=== PATIENT | female | born 1945 | race Caucasian/White ===

== ENCOUNTER 2021-12-08 17:37 | Inpatient (IN) | payer MEDICARE, OTHER ==
[~2021-12-08] VITALS: Ht 175.3 cm; Wt 86.4 kg
--- NOTE | ~2021-12-08 | OR ---
[facility] [address], [place] [address] Draft DATE OF OPERATION: 01/06/2022 SURGEON: Sanjay Fan MD TRANSISTOR TESTER: Dr. Cervantes. PREOPERATIVE DIAGNOSIS: Uterovaginal prolapse. POSTOPERATIVE DIAGNOSIS: Uterovaginal prolapse. PROCEDURE: Total vaginal hysterectomy, rectocele repair. ANESTHESIA: Spinal with IV sedation. ESTIMATED BLOOD LOSS: 50 mL. DRAINS: Ball catheter. PACKS: Vaginal. INDICATIONS AND FINDINGS: The patient is a 76-year-old female, who has had known uterovaginal prolapse for several years. She had been doing well with pessary, but has begun having urinary retention with the pessary. Unfortunately, she also had urinary retention without the pessary. She is now undergoing surgery to correct her prolapse. She has had cardiac clearance. At the time of surgery, the cervix presented at the introitus. The uterus was in normal size. No adnexal masses are noted. She had a grade 3 cystocele and a grade 2 rectocele. DESCRIPTION OF PROCEDURE: The patient was prepped and draped in the dorsal lithotomy position. A weighted speculum was placed and the cervix was visualized and grasped on the anterior and PATIENT NAME: HILL GONSALEZ OPERATIVE REPORT DATE OF : 45 REPORT #: [id number] PHYSICIAN: SANJAY FAN MD PCP: FAISAL KATHLEEN DR REPORT IS CONFIDENTIAL AND NOT TO BE RELEASED WITHOUT AUTHORIZATION [facility] [address] [place], [place] [address] Draft posterior lips with single-tooth tenaculum. The cervix was then injected with 1% lidocaine with 1:200,000 epi to a volume of 10 mL. The posterior cul-de-sac was then attempted to be entered without success. The uterosacral ligaments were grasped bilaterally and divided with the Kiser scissors and suture ligated with 0 Vicryl. Following this, a knife was used to circumscribe the vaginal mucosa. Sharp dissection was used to pushing the bladder up off the cervix anteriorly. The peritoneum was then entered. Following this, the finger was pushed over the uterus as it was quite small and the cul-de-sac was entered at that time. Following this, the uterine vessel areas on each side were grasped with a curved Z-clamp taking care to incorporate the peritoneum on each side and these were divided with the Kiser scissors and suture ligated with 0 Vicryl. The remaining broad ligament pedicles were then clamped across and divided. This was followed by free tie of 0 Vicryl followed by suture ligature of 0 Vicryl. Following this, the cuff was evaluated. The posterior cuff was fairly wide, given the difficulty entering the posterior cul-de-sac. The peritoneum was taken and tacked to the posterior cuff with two [id number]-[id number]-[id number] sutures of 0 Vicryl. There were some bleeding around the patient's left uterine vessels and this was controlled with cautery as well as a superficial suture of 2-0 chromic. Following this, the peritoneum was identified, was closed with running suture of 3-0 Vicryl. The cuff itself was closed with a running locking stitch of 0 Vicryl. There was a raw area near the patient's left side and this was very superficially closed with a 2-0 chromic suture inverting this angle. Following this, the cystocele had mostly resolved after hysterectomy. The rectocele repair was then begun. A triangle of tissue was removed from the perineal body. The vaginal mucosa was then undermined and incised in the midline to the apex of the vagina. The vaginal mucosa was from the underlying tissue with a combination of blunt and sharp dissection. There was some perirectal fascial remaining and this was reapproximated with interrupted sutures of 0 Vicryl. This was primarily a U-shaped defect. Following this, the rectal examination was done, which confirmed there were no sutures in the rectum and good reduction of the defect. Following this, the vaginal mucosa was trimmed and the vaginal mucosa was closed with running suture of 2-0 Vicryl from the apex of the vagina to the hymenal ring. An additional [id number]-ch-mbybj sutures were required near the apex for control of bleeding. The perineal body was strengthened with interrupted sutures of 0 Vicryl. The posterior fourchette was recreated with running suture of 2-0 Vicryl. The skin of the perineum was closed with interrupted sutures placed subcuticularly with 2-0 Vicryl. Following this, there was good length and caliber to the vagina. There was no evidence of any ongoing bleeding. The vagina was packed with Premarin-coated gauze. All sponge and needle counts were correct. The patient was taken to the recovery room in good condition. PATIENT NAME: HILL GONSALEZ OPERATIVE REPORT DATE OF : 45 REPORT #: [id number] PHYSICIAN: SANJAY FAN MD PCP: FAISAL KATHLEEN DR REPORT IS CONFIDENTIAL AND NOT TO BE RELEASED WITHOUT AUTHORIZATION [facility] [address] [place] [address] Draft MD SHAYY León/MODL /[id number] cc: Jose Cervantes DO Copies: JOSE CERVANTES DO ~ PATIENT NAME: HILL GONSALEZ HIWOT OPERATIVE REPORT DATE OF : 45 REPORT #: [id number] PHYSICIAN: SANJAY FAN MD PCP: FAISAL KATHLEEN DR REPORT IS CONFIDENTIAL AND NOT TO BE RELEASED WITHOUT AUTHORIZATION
[~2021-12-08 17:37] MED LIST: ASPIRIN EC81 MG PO; CALCIUM600 MG PO; FLECAINIDE ACET50 MG PO; LEVOTHYROXINE112 MCG PO; METOPROLOL SUCC25 MG PO; NORCO 5-325 TA1 EACH PO; PROGESTERONE100 MG PO; SIMVASTATIN20 MG PO; WARFARIN SODIUM5 MG PO
[2021-12-28] MEDS ORDERED: LIPITOR10 MG (14:57)
[2022-01-05] MEDS ORDERED: VITAMIN D325 MC2 PO (12:16)
[2022-01-05] MEDS ORDERED: CALCIUM500 MG (12:16)
[2022-01-05] MEDS ORDERED: VITAMIN B122500 MCG PO (12:17)
--- NOTE | 2022-01-06 09:51 | NUR ---
01/06/22 0951 Radha Abbasi 0942-PATUIENT ARRIVED TO PACU ON 6L MASK NONAROUSABLE RR EVEN. AV PACED. IVF INFUSING WITH 1 GRAM IV TYLENOL. NO DRAINAGE TO KEN AREA KEN PAD PLACED. HASTINGS CATHETER DRAINING CLEAR YELLOW URINE.
--- NOTE | 2022-01-06 11:05 | NUR ---
REPORT OBTAINED FROM CHARGE NURSE KRISTIAN. PT RESTING IN BED. PT ON 2L NC, CONTINUOUS PULSE OX IN PLACE, O2 SATS 98%. PT DROWSY BUT EASILY AROUSABLE TO VOICE. PT DENIES PAIN, SPINAL AT DERMATOME L2. HASTINGS CATH IN PLACE DRAINING CLEAR YELLOW URINE. PERIPAD WITHOUT DRAINAGE. IV FLUIDS STARTED LR AT 125ML/HR. DISCUSSED PLAN OF CARE WITH PT. PT DENIES NEEDS AT THIS TIME.
--- NOTE | 2022-01-06 11:51 | NUR ---
VSS. PT 99% ON 2L, WEANED TO 1L NC. PT CONTINUES TO BE DROWSY, AROUSABLE TO VOICE. DERMATOME LEVEL AT L4, CONTINUES TO BE UNABLE TO MOVE TOES. PT DENIES NAUSEA, CLEAR LIQUID TRAY ORDERED. PT DENIES OTHER NEEDS AT THIS TIME.
--- NOTE | 2022-01-06 13:07 | NUR ---
VSS. PT CONTINUES TO BE SLEEPY, EASILY AROUSABLE TO VOICE. PT COMPLAINT OF DIZZINESS, WILL CONTINUE TO MONITOR. PT DENIES PAIN. SPINAL RESOLVED, FULL SENSATION AND MOTION. PERIPAD WITHOUT DRAINAGE. PT DENIES OTHER NEEDS AT THIS TIME.
[2022-01-06] MEDS ORDERED: WARFARIN SODIUM4 MG PO (14:25)
[2022-01-06] MEDS ORDERED: ATORVASTATIN CA10 MG PO (14:25)
[2022-01-06] MEDS ORDERED: METOPROLOL SUCC50 MG PO (14:26)
[2022-01-06] MEDS ORDERED: LEVOTHYROXINE100 MCG PO (14:26)
--- NOTE | 2022-01-06 14:35 | NUR ---
PT CONTINUES TO COMPLAIN OF DIZZINESS/ ROOM SPINNING. CALL PLACED TO DR. POPE, TEL[place]ONE ORDER FOR SCOPALAMINE PATCH TO BE PLACED AND TO GIVE MECLIZINE 12-25MG PO Q8PRN FOR DIZZINESS, RBOV.
--- NOTE | 2022-01-06 15:03 | NUR ---
SCOPALAMINE PATCH PLACED BEHIND LEFT EAR, 12.5 MG PO MECLIZINE GIVEN. PT DENIES OTHER NEEDS AT THIS TIME. DISCUSSED GETTING OOB IN ABOUT 1 HOUR IF DIZZINESS HAS IMPROVED. PT AGREEABLE.
--- NOTE | 2022-01-06 16:15 | NUR ---
pt sat at side of bed. reports some dizziness but states it is normal for her and she just needs to sit for a minute. gave pt one minute at edge of bed to stood up with stand by. pt was somewhat wobbly on feet. stood for about 2 minutes then transfered to chair for linen change. underwear and pad given to pt and assisted in putting on. gown changed then pt asssited back to bed. pt reports some nausea once back to bed. 5 mg reglan admisntered. personal items and call ligth within reach. pt denies pain. no further needs.
--- NOTE | 2022-01-06 17:30 | NUR ---
PT RESTING IN BED, PT STATES VERTIGO HAS IMPROVED AT REST. PT CONTINUES TO DENY PAIN. VSS. DR. POPE AT BEDSIDE, DISCUSSED RESTING TONIGHT AND INCREASING ACTIVITY TOMORROW MORNING. PT ADVANCED TO REGULAR DIET. PT DENIES OTHER NEEDS AT THIS TIME.
[2022-01-06] MEDS ORDERED: COLACE100 MG PO (17:33)
[2022-01-06] MEDS ORDERED: VITAMIN B-121000 MCG PO (17:34)
[2022-01-06] MEDS ORDERED: CITRACAL + D E1 EACH PO (17:35)
--- NOTE | 2022-01-06 17:37 | NUR ---
MED REC COMPLETE
--- NOTE | 2022-01-06 17:53 | NUR ---
PT RECEIVED FROM PACU. PT ON ROOM AIR, LUNG SOUNDS CLEAR. PT WITH SOME DIZZINESS, GIVEN SCOPALAMINE PATCH AND MECLIZINE. PT WITH NAUSEA, RECEIVED ZOFRAN AND REGLAN. PT STOOD AND AMBULATED TO CHAIR, DR. TOSHIA JACKSON WITH RESTING THIS EVENING IF DIZZINESS CONTINUES. LR INFUSING AT 125ML/HR. HASTINGS DRAINING FREELY, QS. PT DENIES PAIN. ADVANCED TO REGULAR DIET TOLERATED.
--- NOTE | 2022-01-06 18:03 | NUR ---
PT WITH EMESIS OF 400ML, DENIES NAUSEA AFTER EMESIS. DINNER TRAY REMOVED, ATE 25% BEFORE EMESIS. PT PROVIDED WITH COOL CLOTH. PT DENIES OTHER NEEDS AT THIS TIME.
--- NOTE | 2022-01-06 19:00 | NUR ---
REPORT FROM SHAUN MARTÍNEZ. PT REPORTS THAT SHE IS HAVING MILD NAUSEA AT THIS TIME, SHE DOES NOT FEEL IF SHE IS GOING TO VOMIT. SHE IS RESTING IN BED, NO DISTRESS NOTED ON VISUAL. SHE REPORTS NO PAIN AT THIS TIME.
--- NOTE | 2022-01-06 20:10 | NUR ---
IV ALARMING, PT CALLED. NEW BAG NOW INFUSING. PT WITH NO NEEDS AT THIS TIME.
--- NOTE | 2022-01-06 21:07 | NUR ---
PT WITH EYES CLOSED, RESP EVEN AND UNLABORED. IV INFUSING.
--- NOTE | 2022-01-07 00:23 | NUR ---
ROUNDING ON PT, SHE IS RESTING IN BED EYES CLOSED RR EVEN AT 17BPM, NO DISTRESS NOTED, BEDSIDE OXIMETRY READS 96% OXYGEN SATURATION. SCDS ON, IVF INFUSING.CALL LIGHT IN REACH
--- NOTE | 2022-01-07 02:36 | NUR ---
PT RESTING IN BED EYES CLOSED RR 18BPM, NO DISTRESS NOTED, ALERT TO STAFF AT BEDSIDE FOR V/S AND I/O, SHE REPORTS NO PAIN OR NAUSEA AT THIS TIME. SHE HAS SCHEDULED TYLENOL 1G PO ADMINISTERED. NO REQUESTS AT THIS TIME. FRESH ICE WATER PROVIDED.
--- NOTE | 2022-01-07 04:10 | NUR ---
PT IV PUMP ALARMING, NEW BAG IV FLUIDS PROVIDED. CALL LIGHT IN REACH.
--- NOTE | 2022-01-07 06:01 | NUR ---
PT REPORTS NO PAIN, NO NAUSEA THIS AM, HASTINGS CATHETER REMOVED, 9ML STERILE WATER FROM BALLOON, CATHETER REMOVED WNL NO DISTRESS TO PT, SHE TOLERATED WELL, EDUCATIN WAS PROVIDED TO CARE PLAN GOING FORWARD WITH POST RESIDUAL BLADDER SCANS AFTER VOIDING. PT VERBALIZED UNDERSTANDING. PT REPORTS ITCHING THIS AM, NUBAIN 10NG SUBQ, ADMINISTERED 1ST CHOICE PER ORDERS. NO OTHER CONCERNS OR NEEDS AT THIS TIME.
[2022-01-07] MEDS ORDERED: AMOXICILLIN500 MG (06:32)
--- NOTE | 2022-01-07 07:32 | NUR ---
Bedside shift report completed, patient is very lethargic this AM, possible because of the Nubian that was given, she wakes to touch, but falls immediatley back to sleep. Her oxygen levels at room air is 90-92% this AM.
--- NOTE | 2022-01-07 07:53 | NUR ---
Packing removed by MD winnie PERSAUD.
--- NOTE | 2022-01-07 08:59 | NUR ---
Ambulated patient to the bathroom, very unsteady. She was unable to void, bladder scan highest volume 212 ml. Patient in the chair now, advised to try to eat some breakfast and to be completing her IS as well. AM medications given.
--- NOTE | 2022-01-07 10:25 | NUR ---
PATIENT ATTEMPTED TO URINATE WITHOUT SUCCESS, BLADDER SCAN COMPLETED GREATEST AMOUNT BEING 215 ML. Patient was advised that she needed to get up in another hour, and if no success MD would be called, since it had been since 0600 removal of caballero catheter. She was also advised that she needs to be up for all meals and needs to ambulate at least 4x times today in the hallway.
--- NOTE | 2022-01-07 11:00 | NUR ---
Spoke with Delilah. She states she lives alone in a house in [place] with 4 steps. Son and daughter in law near pt and pt plans on going home to their house on discharge. Pt. does not use any DME. Pt states she will not be able to drive per Dr. Fan. Pt denies needs, family will assist her with any needs that arrise.
--- NOTE | 2022-01-07 11:24 | NUR ---
PT UP TO BR WITH TURNER IN, 1PA- CONTACT ASSIT. PT UNSTEADY, FWW PROVIDED FOR FUTURE USE. PT BACK IN BED. 1000 THIS MORNING
--- NOTE | 2022-01-07 11:46 | NUR ---
Called a spoke with Alyssa Fan's office regarding the patient. Updated the office of the patient not be able to urinate at this time and having approximately 215ml max in her bladder per the bladder scan.
--- NOTE | 2022-01-07 11:59 | NUR ---
ASSISTED PT UP TO BATHROOM, 1P FWW, PT UP TO CHAIR FOR LUNCH
--- NOTE | 2022-01-07 12:00 | NUR ---
Dr Fan called back regarding the patient not voiding. phone orders of 1. have the patient attempt to void again in 1 hour. 2. replace caballero if she reachs >400 ml. Read Phone Orders Back to Dr. Fan.
--- NOTE | 2022-01-07 12:00 | NUR ---
BLADDER SCANNED PATIENT. 315 RESIDUAL, RN NOTIFIED. PATIENT AMBULATED POLK WITH THIS USED CAR SALES MANAGER. PATIENT NOW UP IN BED WITH SPRITE AND LUNCH AT BEDSIDE. CASE MGMNT IN ROOM. CALL LIGHT IN REACH
--- NOTE | 2022-01-07 13:08 | NUR ---
AMBULATED PT IN POLK X1, PT USED BR AND BACK TO BED
--- NOTE | 2022-01-07 13:31 | NUR ---
patient was able to void approximately 50 ml, post void showed 340 ml. Advised patient one more try and then the catheter will have to be replaced, she verbalzied understanding. She has ambulated 1x in the hallway.
--- NOTE | 2022-01-07 14:00 | NUR ---
Dr Fan called to check on the voiding status, updated her that the patient had missed the hat, and the bladder scan revealed 315 ml. She gave orders that if the patient was not able to void at least half of the bladder scan volume she has to have the caballero replaced. Updated the patient on this, she verbalziaed understanding.
--- NOTE | 2022-01-07 14:15 | NUR ---
patient voided, however missed the hat, bladder scanned 340 ml. Advised patient caballero will have to be replaced.
--- NOTE | 2022-01-07 15:30 | NUR ---
THIS RN TO ROOM TO ASSIST WITH HASTINGS CATHETER PLACEMENT. PT REPORTS SHE WOULD LIKE TO TRY TO VOID AGAIN. 1 PERSON ASSIST UP TO RESTROOM. PT VOIDS 75ML. POST VOID RESIDUAL BALDDER SCAN DONE, 418ML FOUND IN BLADDER. EDUCATION DONE WITH PT REGARDING NEED TO HASTINGS CATHETER. PT AGREES. HASTINGS CATHETER PLACED PER PROTOCOL. 400ML CLOUDY YELLOW URINE NOTED. PT RESTING IN BED WITH HEAD OF BED ELEVATED TO 20 DEGREES. PTS PRIMARY RN UPDATED. NO ADDITIONAL REQUESTS OR COMPLAINTS. CALL LIGHT WITHIN REACH. BED RAILS UP.
--- NOTE | 2022-01-07 17:06 | NUR ---
PATIENT AMBULATED TO THE BATHROOM, UNSTEADINESS IS GRADUALLY IMPROVING, THEN TO CHAIR FOR DINNER. Ball remains in place at this time, Plan is to remove in the AM
--- NOTE | 2022-01-07 18:07 | NUR ---
Patient attempted to have a BM no success at this time. Ball draining without difficulty at this time. She is up in the chair as well having dinner.
--- NOTE | 2022-01-07 20:50 | NUR ---
awake, alert and oriented, On room air, co bad and vaginal pain, medicated with Oxycodone 5mg po 04/18 pain. Had small amount of green undigested food like emesis at change of shift, tolerating liquids at thsi time, no c/o lightheadness, coop with vitals and assessment. Lungs clear bilat, abd large soft, tender, love, denies passing gas, no bm. scant amount of vag drainage noted in pad. f/c patent, draining small amount of clear yellow urine. legs elevated, SL RA patent. helped with turning and repositioning, Bed alarm on per fall precautions, uses call light
--- NOTE | 2022-01-07 21:58 | NUR ---
AWAKE, WATCHING TV, NO FURTHER C/O PAIN OR N/V
--- NOTE | 2022-01-08 03:15 | NUR ---
PT WAS ASSISTED UP TO THE TOILET, TRYING FOR A BM FOR AWHILE, CHECKED ON PT, ASSISTED BACK TO BED, HSATINGS EMPTIED, RN IN TO CHECK IN WITH PT, NO FURTHER NEEDS
--- NOTE | 2022-01-08 03:30 | NUR ---
uP TO BR, PASSING GAS, SMALL AMOUNT OF RED VAGINAL DRAINAGE INPAD, C/O ABD PAIN, MEDICATED WITH SFCHEDULED TYLENOL, TOLERATING LIQUIDS WELL, NO EMESIS. USES CALL LIGHT
--- NOTE | 2022-01-08 05:11 | NUR ---
pt awakes easily, c/o 5/10 abd pain, medicated with Oxycodone 5mg po. abd soft, love, tender, scant amounts of vag drainage. f/c dcd at 0505. procedure explained, aware of post residual void bladder scanning. cooperative
--- NOTE | 2022-01-08 05:19 | NUR ---
PT HAS SLEPT OFF AND ON THIS SHIFT. ON ROOM AIR, ABD SOFT, TENDER, PASSING GAS, NO BM. SCANT AMOUNT OF VAGINAL DISCHRGE NOTED IN PAD. F/C WAS DC'D AT 0505, AWARE OF POST VOID RESIDUAL CHECKS. ON REGULAR DIET NOW, TOLERATING LIQUIDS WELL, NO EMESIS THIS SHIFT. HAD SMALL AMOUNT OF EMESIS BETWEEN SHIFTS. UNDIGESTED FOOD. NONE SINCE THEN. HAS BEEN MEDICATED WITH OXYCODOONE PRN 2X AND SCHEDULED TYLENOL PER ABD PAIN WITH GOOD PAIN RELIEF. SL PATENT. MUCH IMPROVED GAIT WHEN UP TO BR, 1PSBA/FWW. BED ALARM ON PER FALL PRECAUTIONS. ALERT AND ORIENTED, USES CALL LIGHT. PT TO BE DC'D HOME TODAY IF SHE PASSESS HER PVR
--- NOTE | 2022-01-08 07:28 | NUR ---
Patient resting in bed, eyes closed, respirations even and non labored. Patient has no notable distress. Personal supplies and call light within reach.
--- NOTE | 2022-01-08 08:30 | NUR ---
Patient doing well this morning, no distress. Patient educated on plan of care for bladder training, pt receptive to plan. Patient has been up to void this morning, 80ml clear yellow urine noted with a post bladder scan reading of 116ml. Provider in at this time to see patient, updated her on most recent void. Patient encouraged to attempt to void hourly. No current needs. Personal supplies and call light within reach.
--- NOTE | 2022-01-08 09:25 | NUR ---
VS AND I&O TAKEN AND DOCUMENTED. PT STATES SHE HAS NO NEEDS AT THIS TIME. BREAKFAST TRAY TAKEN AND FRESH ICE WATER GIVEN. INFORMED PT TO CALL IF SHE NEEDS ANYTHING. CALL LIGHT IS IN REACH.
--- NOTE | 2022-01-08 09:50 | NUR ---
Pt plans on dc to home today to stay with son. Pt is now voiding per rn. Dr Fan will see later today for dc.
--- NOTE | 2022-01-08 13:31 | NUR ---
Patient up to bathroom to void, 50ml clear yellow urine noted. Bladder scan post void is 200ml. Patient reports she does not have any sensation to void at this time.
--- NOTE | 2022-01-08 14:00 | NUR ---
Dr. Fan in to see patient at this time. Verbal order obtained from Dr. Fan to place indwelling caballero in patient with leg bag and discharge home. Follow up to see patient planned for tuesday morning. Also, per Dr. Fan patient to have her warfarin dose today prior to discharge home.
--- NOTE | 2022-01-08 15:47 | NUR ---
Ball inserted at this time per provider order using sterile technique. Patient tolerated insertion well. Immediate return of clear yellow urine.
--- NOTE | 2022-01-08 15:57 | PATH ---
[facility] [address] [place], [place] [address] Signed SPECIMEN(S): A UTERUS AND CERVIX SPECIMEN SOURCE: A. UTERUS AND CERVIX CLINICAL HISTORY: Complete uterovaginal prolapse FINAL PATHOLOGIC DIAGNOSIS: Uterus and cervix, hysterectomy: - Cervix: No histopathologic abnormality. - Endometrium: Inactive endometrium, benign endometrial polyp. - Myometrium: No histopathologic abnormality. - No evidence of malignancy. NAL:cml:C2NR MICROSCOPIC EXAMINATION: Histologic sections of all submitted blocks are examined by light microscopy. These findings, together with the gross examination, support the pathologic diagnosis. GROSS DESCRIPTION: The specimen, labeled and designated "Adis, uterus and cervix," is received in formalin and consists of a 44 g, 6.5 x 3.5 x 2.7 pink uterus and cervix. The serosal surfaces are smooth. The conte ovoid ectocervical mucosa is 5.5 x 4.0 cm and surrounds a central 0.5 cm-like os. The endocervical canal is palmate. The triangular red-brown endometrial cavity is 3.0 x 1.2 cm. Endometrial tissue is up to 0.2 cm in thickness. The pink myometrium is up to 1.3 cm in thickness and is free of nodules. Summary of sections: A1 cervix and serosa A2 anterior and posterior full-thickness AK (under the direct supervision of a pathologist) The Gross Description was prepared using a voice recognition system. The report was reviewed for accuracy; however, sound-alike word errors, addition and/or deletions may occur. If there is any question about this report, please contact Client Services. PERFORMING LABORATORY: The technical component was performed by [employer], Cielo Herrmann, PATIENT NAME: HILL GONSALEZ PATHOLOGY DATE OF : 45 REPORT #: [id number] PHYSICIAN: TREE PATHOLOGY PCP: FAISAL KATHLEEN DR REPORT IS CONFIDENTIAL AND NOT TO BE RELEASED WITHOUT AUTHORIZATION [facility] [address] [place], [place] [address] [place] [address] (Care Attendant: Anaya Zhang MD; CLIA# [id number]). Professional [facility], [address] [address] (CLIA# [id number]). Diagnostician: Yuni Ann MD Pathologist Electronically Signed 01/08/2022 Copies: ~ PATIENT NAME: HILL GONSALEZ PATHOLOGY DATE OF : 45 REPORT #: [id number] PHYSICIAN: TREE LEW PCP: FAISAL KATHLEEN DR REPORT IS CONFIDENTIAL AND NOT TO BE RELEASED WITHOUT AUTHORIZATION
[2022-01-08] MEDS ORDERED: KONDREMUL2.5 ML/5 M PO (16:09)
[2022-01-08] MEDS ORDERED: SENOKOT-S TABL1 EACH PO (16:09)
[2022-01-08] MEDS ORDERED: OXYCODONE HCL5 MG PO (16:10)
[2022-01-08] MEDS ORDERED: TYLENOL EXTRA500 MG PO (16:10)
== END 2022-01-08 17:00 | disposition home or self-care (01) | DRG 743 ==
LOC: MS 01-06 05:50 → DSVR 01-06 05:50 → MS 01-06 07:30
PROVIDERS: ADMIT Obstetrics & Gynecology; ATTEND Obstetrics & Gynecology
PROC: 0UT97ZZ Resection of Uterus, Via Natural or Artificial Opening (ICD-10-PCS; principal; 2022-01-06 07:30)
PROC: 0JQC0ZZ Repair Pelvic Region Subcutaneous Tissue and Fascia, Open Approach (ICD-10-PCS; 2022-01-06 07:30)
DX: N81.4 Uterovaginal prolapse, unspecified (principal); R33.9 Retention of urine, unspecified; D69.6 Thrombocytopenia, unspecified; R11.0 Nausea; Z79.82 Long term (current) use of aspirin; Z79.890 Hormone replacement therapy; Z79.899 Other long term (current) drug therapy; Z98.890 Other specified postprocedural states; Z91.041 Radiographic dye allergy status; Z88.8 Allergy status to other drugs, medicaments and biological substances
CPT/HCPCS: 00944; 36415; 80048; 85027; 85610; 85730; 88305; A9270; J0131; J0694; J1644; J2001; J2250; J2274; J2300; J2405; J2704; J2765; J7121